=== PATIENT | male | born 1985 | race Caucasian/White ===

== ENCOUNTER 2021-10-21 15:45 | Emergency (ER) | payer SELFPAY ==
[2021-10-21 15:57] VITALS: BP 125/77; PULSE 83; RESP 16; TEMP 36.8; O2SAT 97
[2021-10-21 16:04] VITALS: BP 125/77; PULSE 83; RESP 16; O2SAT 97
--- NOTE | 2021-10-21 16:05 | ED_ITS ---
HPI - Skin/Abscess/Foreign Bdy General: Chief complaint: Skin/Abscess/Foreign Body Stated complaint: facial swelling Time Seen by Provider: 10/21/21 16:03 Source: patient Mode of arrival: ambulatory Limitations: no limitations History of Present Illness: Patient is a 36-year-old male who presents to ED today with a complaint of left-sided facial swelling that he initially noticed beginning yesterday. He states he noticed the area was more swollen today after waking up from a nap. He states he does have a facial sebaceous cyst he frequently pops and wonders if the swelling could be secondary to that. MD complaint: other (facial swelling) Onset (ago): day(s) (yesterday) Location: face Pain Consistency: constant Relieving factors: none Exacerbating factors: none Associated symptoms: Reports no associated symptoms; Deny chills, fever(s), nausea or vomiting Treatments prior to arrival: none Review of Systems Const: Denies: fever(s), chills, body aches, fatigue or malaise ENMT: Reports: other (L facial swelling); Denies: dental pain, ear or mastoid pain, nasal discharge, nasal congestion or post nasal drip Card: Denies: chest pain Resp: Denies: dyspnea GI: Denies: nausea or vomiting Musc: Denies: neck pain Skin/Breast: Reports: other (facial cyst); Denies: rash Neuro: Denies: headache(s) Physical Exam Const: COMMON NORMALS: no acute distress, patient oriented x3, no limitations and alert GENERAL APPEARANCE: cooperative ORIENTATION/CONSCIOUSNESS: Yes awake, Yes oriented to person, Yes oriented to place and Yes oriented to time HENMT: COMMON NORMALS: normocephalic, atraumatic and Normal external nose present HEAD & SCALP: normal to inspection, normocephalic and atraumatic FACE & SINUS IMAGES: 1. swelling/pain 2. small sebaceous cyst-does not appear infected; does not appear that the swelling/pain to L side of his face is related to this; he states this will get about the size of a quarter and then subside once he drains it NOSE: Normal external nose present MOUTH: Normal oral and palatal mucosa present, lip normal and tongue normal TEETH & GINGIVA: Yes poor dentition and Yes other (overall poor dentition; decay to L upper molar ) THROAT: posterior oropharynx normal, tonsils normal and uvula midline Eye: COMMON NORMALS: Equal, round and reactive pupils present and EOMs intact bilaterally GENERAL EYE: appearance normal, both eyes and all related structures PUPIL: Yes Equal, round and reactive pupils present Neck/C-Spine: COMMON NORMALS: full ROM and no lymphadenopathy GENERAL: No anterior neck swelling and No submandibular swelling Resp: COMMON NORMALS: normal respiratory effort Cardio: COMMON NORMALS: regular rate and regular rhythm RATE: regular rate RHYTHM: regular rhythm Neuro: COMMON NORMALS: patient oriented x3 SENSORIUM/ORIENTATION: Yes fadi rt, Yes oriented to person, Yes oriented to place and Yes oriented to time Course Vital Signs: Vital signs: Vital Signs Temperature 98.3 F 10/21/21 15:57 Pulse Rate 83 10/21/21 16:04 Respiratory Rate 16 10/21/21 16:04 Blood Pressure 125/77 10/21/21 16:04 Pulse Oximetry 97 10/21/21 16:04 MDM - Skin/Abscess/Foreign Bdy Medicial Decision Making I think facial swelling at this time is extending from a left upper molar dental infection. Patient will be placed on antibiotics. I will have case management try to set him up with a primary care for further follow-up and evaluation if symptoms do not improve. Return to ED precautions given. Discharge Plan Discharge Patient Disposition: Home Clinical Impression: Swelling of left side of face Condition: Stable Prescriptions: New penicillin V potassium 500 mg tablet 500 mg PO Q8H 7 Days Qty: 21 0RF Discharge Orders: Discharge ED (Routine); Ordered 10/21/21 Ordered By: Aleida Raymond Stand Alone Forms: Work/School Release Coding Level of Care Code ED [employer]person [employer] for [employer]
--- NOTE | 2021-11-01 15:04 | DCPLANNER ---
late entry - caseworker had message to speak with patient about getting established with a primary care physician. manager loss prevention called patient, unable to speak with patient or leave a voicemail for patient.
== END 2021-10-21 16:40 | disposition home or self-care (01) ==
PROVIDERS: Emergency Provider Physician Assistant
DX: L72.3 Sebaceous cyst (principal)
CPT/HCPCS: 99283